=== PATIENT | female | born 1990 | race Caucasian/White ===

== ENCOUNTER 2018-01-11 19:41 | Outpatient (CLI) | payer MEDICAID ==
[2018-01-11 20:59] LABS: ADD UMIC YES; UR ASCORBIC ACID NEGATIVE (NEGATIVE); UR BACTERIA FEW /HPF (NONE SEEN); UR BILIRUBIN (Dip) NEGATIVE (NEGATIVE); UR BLOOD (Dip) NEGATIVE (NEGATIVE); UR CLARITY CLEAR (CLEAR); UR COLOR YELLOW (YELLOW); UR GLUCOSE (Dip) NEGATIVE (NEGATIVE); UR KETONES (Dip) NEGATIVE (NEGATIVE); UR LEUKOCYTE ESTERASE (Dip) 2+ Leu/ul (NEGATIVE); UR NITRITE (Dip) NEGATIVE (NEGATIVE); UR RBC 1 /HPF (0-5); UR SQUAMOUS EPITHELIAL CELL FEW /HPF (FEW); UR TOTAL PROTEIN (Dip) NEGATIVE (NEGATIVE); UR UROBILINOGEN (Dip) NEGATIVE (NEGATIVE); UR WBC 2 /HPF (0-5)
== END 2018-01-11 21:45 | disposition home or self-care (01) ==
LOC: OBT 19:41 → L-D 19:43 → OBT 21:45
DX: O36.5930 Maternal care for other known or suspected poor fetal growth, third trimester, not applicable or unspecified (principal); O36.8130 Decreased fetal movements, third trimester, not applicable or unspecified; Z3A.38 38 weeks gestation of pregnancy
CPT/HCPCS: 76815; 76818; 81001; 87086

== ENCOUNTER 2018-01-24 16:32 | Inpatient (IN) | payer MEDICAID ==
[2018-01-24] MEDS ORDERED: LIDOCAINE 1% (MPF) 30 ML INJ INJ (20:00)
[2018-01-24] MEDS ORDERED: METHYLERGONOVINE 0.2 MG INJ IM (20:00)
[2018-01-24] MEDS ORDERED: CARBOPROST 250 MCG INJ IM (20:00)
[2018-01-24] MEDS ORDERED: IBUPROFEN 600 MG TAB PO (20:00)
[2018-01-24] MEDS ORDERED: MISOPROSTOL 200 MCG TAB PR (20:00)
[2018-01-24] MEDS ORDERED: OXYTOCIN 30 UNITS/LR 500 ML IV (20:00)
[2018-01-24] MEDS: AMPICILLIN 2 GM/NS (PMX) 100 ML IV (20:07)
[2018-01-24] MEDS: LACTATED RINGER'S 1,000 ML IV (20:07)
[2018-01-24 20:33] LABS: ADD MAN DIFF? NO
[2018-01-24 20:38] LABS: WHITE BLOOD COUNT 9.2 10^3/ul (4.8-10.8)
[2018-01-24 20:38] LABS: ABNORMAL IP MESSAGE 1; BASOPHILS % 0.1 % (0.0-2.0); EOSINOPHILS % 0.3 % (0.0-7.0); HEMATOCRIT 34.9 % (37.0-47.0); LYMPHOCYTES # 1.4 10^3/ul (0.8-2.9); LYMPHOCYTES % 15.1 % (15.0-51.0); MEAN CORPUSCULAR HEMOGLOBIN 31.2 pg (29.0-33.0); MEAN CORPUSCULAR HGB CONC 34.4 g/dl (32.0-37.0); MEAN CORPUSCULAR VOLUME 90.6 fl (82.0-101.0); MEAN PLATELET VOLUME 13.1 fl (7.4-10.4); MONOCYTE # 0.6 10^3/ul (0.3-0.9); NEUTROPHIL # 7.1 10^3/ul (1.6-7.5); NEUTROPHILS % 77.5 % (39.0-77.0); PLATELET COUNT 145 10^3/UL (140-415); RED BLOOD COUNT 3.85 10^6/ul (4.20-5.40); RED CELL DISTRIBUTION WIDTH 14.3 % (11.5-14.5)
[2018-01-24 20:40] LABS: POSITIVE DIFF @See below
[2018-01-24] MEDS: MISOPROSTOL 25 MCG CAPSULE PO (20:43)
[2018-01-24 20:53] LABS: INR 0.87; PROTIME 11.9 Sec (11.9-14.9); PT RATIO 0.9
[2018-01-24 20:54] LABS: PARTIAL THROMBOPLASTIN TIME 28.7 Sec (25.0-35.0)
[2018-01-25] MEDS: AMPICILLIN 1 GM/NS (PMX) 50 ML IV ×8 (00:13→23:31)
[2018-01-25 00:39] LABS: HEPATITIS B SURFACE ANTIGEN NEGATIVE (NEGATIVE)
[2018-01-25] MEDS: MINERAL OIL LIGHT 10 ML VIAL TOP (04:00)
[2018-01-25] MEDS: LACTATED RINGER'S 1,000 ML IV ×4 (04:49→19:49)
[2018-01-25] MEDS: DINOPROSTONE 10 MG VAG SUPP VAG (11:17)
[2018-01-25] MEDS: BUTORPHANOL 2 MG INJ IV ×2 (13:05→14:44)
[2018-01-25 15:07] LABS: RAPID PLASMA REAGIN NONREACTIVE (NR)
[2018-01-25] MEDS ORDERED: TERBUTALINE 1 ML (16:59)
[2018-01-25] MEDS: TERBUTALINE 1 MG/ML INJ SC ×2 (17:02→18:04)
[2018-01-25] MEDS ORDERED: FENTAnyl 2MCG/ML-ROPIV 0.2% 100 ML (17:33)
[2018-01-25] MEDS: MISOPROSTOL 25 MCG CAPSULE PO ×4 (19:45)
[2018-01-26] MEDS ORDERED: KETOROLAC 30 MG INJ IV
[2018-01-26] MEDS ORDERED: NALOXONE (0.4 MG/ML) INJ IV
[2018-01-26] MEDS ORDERED: HYDROmorphONE 0.5 MG/0.5 ML SYG IV ×2
[2018-01-26] MEDS ORDERED: DIPHENHYDRAMINE 50 MG INJ IV
[2018-01-26] MEDS: FENTAnyl 2MCG/ML-ROPIV 0.2% 100 ML BAG EPI (01:32)
[2018-01-26] MEDS: LACTATED RINGER'S 1,000 ML IV (01:32)
[2018-01-26] MEDS: AMPICILLIN 1 GM/NS (PMX) 50 ML IV (03:17)
[2018-01-26] MEDS: OXYTOCIN 30 UNITS/LR 500 ML IV ×3 (06:35→14:06)
[2018-01-26] MEDS ORDERED: ACETAMINOPHEN 325 MG TAB PO (08:30)
[2018-01-26] MEDS ORDERED: OXYCODONE/ASPIRIN (4.88/325) TAB PO (08:30)
[2018-01-26] MEDS ORDERED: DIBUCAINE 1% 30 GM OINT PR (08:30)
[2018-01-26] MEDS ORDERED: HYDROCODONE/APAP (5/325) TAB PO (08:30)
[2018-01-26] MEDS ORDERED: ONDANSETRON 4 MG INJ IV ×2 (08:30)
[2018-01-26] MEDS: OXYCODONE/ASPIRIN (4.88/325) TAB PO (10:09)
[2018-01-26] MEDS: SENNA/DOCUSATE NA (8.6MG/50MG) TAB PO ×2 (10:10→20:44)
[2018-01-26] MEDS: LANOLIN 7 GM TUBE TOP (10:11)
[2018-01-26] MEDS: BENZOCAINE 20% 56 ML SPRAY TOP (10:11)
[2018-01-26] MEDS: WITCH HAZEL/GLYCERIN PAD PR (10:11)
[2018-01-26] MEDS: IBUPROFEN 600 MG TAB PO ×3 (12:07→23:37)
[2018-01-27] MEDS: IBUPROFEN 600 MG TAB PO ×3 (05:32→17:58)
[2018-01-27] MEDS: WITCH HAZEL/GLYCERIN PAD PR (05:38)
[2018-01-27 06:55] LABS: ADD MAN DIFF? NO
[2018-01-27 07:01] LABS: BASOPHILS % 0.4 % (0.0-2.0); EOSINOPHILS % 0.5 % (0.0-7.0); HEMATOCRIT 28.3 % (37.0-47.0); HEMOGLOBIN 9.4 g/dl (12.0-16.0); LYMPHOCYTES # 1.4 10^3/ul (0.8-2.9); MEAN CORPUSCULAR HGB CONC 33.2 g/dl (32.0-37.0); MEAN CORPUSCULAR VOLUME 93.4 fl (82.0-101.0); MEAN PLATELET VOLUME 12.4 fl (7.4-10.4); MONOCYTE # 0.4 10^3/ul (0.3-0.9); MONOCYTES % 4.8 % (0.0-11.0); NEUTROPHIL # 5.9 10^3/ul (1.6-7.5); NEUTROPHILS % 75.7 % (39.0-77.0); PLATELET COUNT 105 10^3/UL (140-415); RED BLOOD COUNT 3.03 10^6/ul (4.20-5.40); RED CELL DISTRIBUTION WIDTH 14.6 % (11.5-14.5)
[2018-01-27 07:01] LABS: WHITE BLOOD COUNT 7.8 10^3/ul (4.8-10.8)
[2018-01-27] MEDS: SENNA/DOCUSATE NA (8.6MG/50MG) TAB PO ×2 (09:13→22:11)
[2018-01-27] MEDS: HYDROCODONE/APAP (5/325) TAB PO (22:11)
[2018-01-28] MEDS: IBUPROFEN 600 MG TAB PO ×3 (00:16→12:20)
[2018-01-28] MEDS: BENZOCAINE 20% 56 ML SPRAY TOP (08:06)
[2018-01-28] MEDS: WITCH HAZEL/GLYCERIN PAD PR (08:06)
[2018-01-28] MEDS: SENNA/DOCUSATE NA (8.6MG/50MG) TAB PO (08:42)
[2018-01-28] MEDS: LANOLIN 7 GM TUBE TOP (08:42)
[2018-01-28] MEDS: MEASLES,MUMPS,RUBELLA VACCINE INJ SC* (09:00)
== END 2018-01-28 16:04 | disposition home or self-care (01) | DRG 775 ==
LOC: OBT 16:32 → PP1 01-26 08:22 → L-D 16:34 → OBT 18:05 → L-D 18:05
PROVIDERS: Obstetrics & Gynecology
PROC: 10E0XZZ Delivery of Products of Conception, External Approach (ICD-10-PCS; principal; 2018-01-26)
PROC: 0HQ9XZZ Repair Perineum Skin, External Approach (ICD-10-PCS; 2018-01-26)
PROC: 3E033VJ Introduction of Other Hormone into Peripheral Vein, Percutaneous Approach (ICD-10-PCS; 2018-01-26)
DX: O48.0 Post-term pregnancy (principal); Z3A.40 40 weeks gestation of pregnancy; O99.214 Obesity complicating childbirth; E66.01 Morbid (severe) obesity due to excess calories; Z68.28 Body mass index [BMI] 28.0-28.9, adult; O70.0 First degree perineal laceration during delivery; O69.81X0 Labor and delivery complicated by cord around neck, without compression, not applicable or unspecified; Z37.0 Single live birth
CPT/HCPCS: 62319; 76815; 76818; 85025; 85610; 85730; 86592; 86900; 86901; 87340